=== PATIENT | male | born 1965 | race Caucasian/White ===

== ENCOUNTER 2017-12-24 10:51 | Inpatient (IN) | payer OTHER ==
[~2017-12-24] VITALS: Ht 185.4 cm; Wt 117.9 kg
[~2017-12-24 10:51] MED LIST: COZAAR25 MG; LIPITOR20 MG; LOSARTAN-HCTZ1 EAC1; OMEPRAZOLE20 MG
[2018-01-01] MEDS ORDERED: LEVAQUIN500 MG PO (20:12)
[2018-01-01] MEDS ORDERED: TAMS0.4C PO (20:12)
[2018-01-01] MEDS ORDERED: OMEPRAZOLE20 MG PO (20:12)
== END 2018-01-01 20:37 | disposition home or self-care (01) | DRG 728 ==
LOC: ER 10:51 → SURH 22:19
PROC: BW21Y0Z Computerized Tomography (CT Scan) of Abdomen and Pelvis using Other Contrast, Unenhanced and Enhanced (ICD-10-PCS; principal; 2017-12-24)
PROC: 8E0ZXY6 Isolation (ICD-10-PCS; 2017-12-28)
PROC: 05H433Z Insertion of Infusion Device into Left Innominate Vein, Percutaneous Approach (ICD-10-PCS; 2017-12-29)
DX: N41.0 Acute prostatitis (principal); N39.0 Urinary tract infection, site not specified; Z88.0 Allergy status to penicillin; E86.0 Dehydration; E66.8 Other obesity; I10 Essential (primary) hypertension; B96.5 Pseudomonas (aeruginosa) (mallei) (pseudomallei) as the cause of diseases classified elsewhere; Z16.24 Resistance to multiple antibiotics; K57.30 Diverticulosis of large intestine without perforation or abscess without bleeding

== ENCOUNTER 2018-02-23 05:35 | Day surgery (SDC) | payer OTHER ==
[~2018-02-23 05:35] MED LIST changes: +LEVAQUIN500 MG PO; +OMEPRAZOLE20 MG PO; +TAMS0.4C PO
[2018-02-23] MEDS ORDERED: MIRALAX17 GM PO (11:08)
[2018-02-23] MEDS ORDERED: NEURONTIN300 MG PO (11:08)
[2018-02-23] MEDS ORDERED: PERCOCET 5-3251 EACH PO (11:08)
[2018-02-23] MEDS ORDERED: ZOFRAN ODT4 MG PO (11:08)
== END 2018-02-23 13:45 | disposition home or self-care (01) ==
LOC: CIR.AMB 05:35
DX: K40.20 Bilateral inguinal hernia, without obstruction or gangrene, not specified as recurrent (principal)

== ENCOUNTER 2020-03-02 08:00 | Day surgery (SDC) | payer OTHER ==
[~2020-03-02 08:00] MED LIST changes: +MIRALAX17 GM PO; +NEURONTIN300 MG PO; +PERCOCET 5-3251 EACH PO; +ZOFRAN ODT4 MG PO
== END 2020-03-02 12:40 | disposition home or self-care (01) ==
LOC: AMB-ENDOS 08:00
PROVIDERS: ATTEND Surgery
DX: D12.2 Benign neoplasm of ascending colon (principal); K64.1 Second degree hemorrhoids

== ENCOUNTER 2021-08-05 08:34 | Emergency (ER) | payer OTHER ==
[~2021-08-05] VITALS: Ht 185.4 cm; Wt 131.5 kg
== END 2021-08-05 16:33 | disposition home or self-care (01) ==
LOC: ER 08:34
DX: R10.11 Right upper quadrant pain (principal); R10.32 Left lower quadrant pain